=== PATIENT | female | born 2000 | race Hispanic/Latino ===

== ENCOUNTER 2024-10-20 21:46 | Emergency (ER) | payer BC ==
[~2024-10-20] VITALS: Ht 157.5 cm; Wt 55.3 kg
[2024-10-20 21:51] VITALS: PULSE 64; RESP 20; TEMP 97.7
[2024-10-20] MEDS ORDERED: SUDAFED SINUS1 EACH PO (22:13)
[2024-10-20] MEDS ORDERED: AZITHROMYCIN250 MG PO (22:13)
[2024-10-20 22:18] VITALS: BP 107/56; PULSE 64; RESP 20; TEMP 97.7; O2SAT 99
[2024-10-20] MEDS ORDERED: SUDAFED 12 HOU120 MG PO (22:18)
== END 2024-10-20 22:20 | disposition home or self-care (01) ==
LOC: FSED 21:50
DX: R05.9 Cough, unspecified (principal); J01.90 Acute sinusitis, unspecified; R09.89 Other specified symptoms and signs involving the circulatory and respiratory systems
CPT/HCPCS: 99283